=== PATIENT | female | born 1975 | race Caucasian/White ===

== ENCOUNTER 2024-08-26 14:55 | Emergency (ER) | payer OTHER | END 2024-08-26 17:12 | disposition home or self-care (01) | LOC: FB.ED 14:55 | DX: S93.402A Sprain of unspecified ligament of left ankle, initial encounter (principal); Z87.891 Personal history of nicotine dependence; X50.1XXA Overexertion from prolonged static or awkward postures, initial encounter | CPT/HCPCS: 73610-LT; 99283 ==